=== PATIENT | female | born 1970 ===

== ENCOUNTER 2021-03-21 13:30 | Outpatient (CLI) | payer OTHER | END 2021-03-21 13:32 | disposition home or self-care (01) | LOC: PPH VACUNA 13:30 | DX: Z23 Encounter for immunization (principal) ==

== ENCOUNTER 2021-11-08 14:30 | Outpatient (CLI) | payer OTHER | END 2021-11-08 14:50 | disposition home or self-care (01) | LOC: PPH VACUNA 14:30 | PROVIDERS: ATTEND Emergency Medicine Pediatric Emergency Medicine | DX: Z23 Encounter for immunization (principal) ==